=== PATIENT | female | born 1965 | race Two or more races ===

== ENCOUNTER 2018-05-11 17:31 | Emergency (ER) | payer OTHER ==
[~2018-05-11] VITALS: Ht 157.5 cm; Wt 68.0 kg
== END 2018-05-11 20:52 | disposition home or self-care (01) ==
LOC: ER 17:31
DX: S61.213A Laceration without foreign body of left middle finger without damage to nail, initial encounter (principal); S61.215A Laceration without foreign body of left ring finger without damage to nail, initial encounter; S62.633A Displaced fracture of distal phalanx of left middle finger, initial encounter for closed fracture; S62.635A Displaced fracture of distal phalanx of left ring finger, initial encounter for closed fracture; W45.8XXA Other foreign body or object entering through skin, initial encounter; Y93.89 Activity, other specified; Y92.89 Other specified places as the place of occurrence of the external cause; Y99.8 Other external cause status

== ENCOUNTER 2018-06-01 17:05 | Outpatient (CLI) | payer OTHER | END 2018-06-01 17:20 | disposition home or self-care (01) | LOC: RAD 17:05 | DX: S62.632A Displaced fracture of distal phalanx of right middle finger, initial encounter for closed fracture (principal) ==

== ENCOUNTER → 2018-10-06 | Outpatient (CLI) | payer OTHER | END | disposition home or self-care (01) | LOC: RAD 16:41 | DX: M79.641 Pain in right hand (principal) ==

== ENCOUNTER 2021-11-09 08:00 | Outpatient (CLI) | payer OTHER | END 2021-11-09 08:30 | disposition home or self-care (01) | LOC: PPH VACUNA 08:00 | PROVIDERS: ATTEND Emergency Medicine Pediatric Emergency Medicine | DX: Z23 Encounter for immunization (principal) ==

== ENCOUNTER 2022-10-29 11:24 | Outpatient (CLI) | payer OTHER | END 2022-10-29 11:35 | disposition home or self-care (01) | LOC: SONOGRAMA 11:24 | PROVIDERS: ATTEND Surgery Surgical Oncology | DX: C43.62 Malignant melanoma of left upper limb, including shoulder (principal) ==

== ENCOUNTER 2023-10-29 15:31 | Outpatient (CLI) | payer OTHER | END 2023-10-29 15:36 | disposition home or self-care (01) | LOC: RAD 15:31 | PROVIDERS: ATTEND Surgery Surgical Oncology | DX: C43.62 Malignant melanoma of left upper limb, including shoulder (principal) ==

== ENCOUNTER 2024-01-26 08:53 | Outpatient (CLI) | payer OTHER | END 2024-01-26 08:59 | disposition home or self-care (01) | LOC: SONOGRAMA 08:53 | PROVIDERS: ATTEND Dermatology | DX: R59.0 Localized enlarged lymph nodes (principal) ==

== ENCOUNTER 2025-02-21 14:35 | Outpatient (CLI) | payer OTHER | END 2025-02-21 14:43 | disposition home or self-care (01) | LOC: SONOGRAMA 14:35 | PROVIDERS: ATTEND Surgery Surgical Oncology | DX: C43.62 Malignant melanoma of left upper limb, including shoulder (principal) ==